=== PATIENT | female | born 1995 | race Caucasian/White ===

== ENCOUNTER 2021-05-09 14:01 | Emergency (ER) | payer BC, MEDICAID ==
[~2021-05-09] VITALS: Ht 175.3 cm; Wt 125.0 kg
[~2021-05-09 14:01] MED LIST: IBUP-1985 PO
[2021-05-09] MEDS ORDERED: ALBUTEROL INHALER 1 PUFF/90 MCG INHALER IH STA (16:27)
[2021-05-09] MEDS ORDERED: ALBU8HFA PO (16:29)
[2021-05-09] MEDS ORDERED: dexamethasone sod phosphate 10mg/ml inj IV STA (16:29)
[2021-05-09] MEDS ORDERED: albuterol 2.5 MG/3 ML nebule NEB ONE (18:55)
[2021-05-09 19:09] VITALS: BP 156/109
== END 2021-05-09 19:12 | disposition home or self-care (01) ==
LOC: ER 14:02
DX: J45.909 Unspecified asthma, uncomplicated (principal); F12.90 Cannabis use, unspecified, uncomplicated; Z88.1 Allergy status to other antibiotic agents; Z79.899 Other long term (current) drug therapy
CPT/HCPCS: 71045; 93005; 96374; 99283; J1100; 94760

== ENCOUNTER 2021-08-13 04:45 | Emergency (ER) | payer BC, SELFPAY ==
[~2021-08-13] VITALS: Ht 175.3 cm; Wt 125.0 kg
[2021-08-13 05:12] VITALS: BP 131/92
--- NOTE | 2021-08-13 07:15 | NUR ---
Pt speaks in full sentences. Given a cup of coffee.
[2021-08-13] MEDS ORDERED: ALBU6.7H9 INH ×2 (07:50)
[2021-08-13] MEDS ORDERED: predniSONE 20 mg tablet PO ONE (07:50)
[2021-08-13] MEDS ORDERED: PRED20TA PO ×2 (07:50)
--- NOTE | 2021-08-13 08:27 | NUR ---
Pt given and understands d/c instructions. Ambulatory with a steady gait.
[2021-08-13] MEDS ORDERED: ALBU18HF2 INH (15:36)
== END 2021-08-13 08:29 | disposition home or self-care (01) ==
LOC: ER 04:45
DX: J06.9 Acute upper respiratory infection, unspecified (principal); Z20.822 Contact with and (suspected) exposure to COVID-19; B34.9 Viral infection, unspecified; J45.901 Unspecified asthma with (acute) exacerbation; J02.9 Acute pharyngitis, unspecified; R11.2 Nausea with vomiting, unspecified; R05.9 Cough, unspecified; R06.02 Shortness of breath; R09.89 Other specified symptoms and signs involving the circulatory and respiratory systems; F12.90 Cannabis use, unspecified, uncomplicated; Z88.1 Allergy status to other antibiotic agents; Z79.899 Other long term (current) drug therapy
CPT/HCPCS: 87635; 99283; C9803; J7512

== ENCOUNTER 2021-08-13 09:22 | Observation (INO) | payer BC ==
[~2021-08-13] VITALS: Ht 175.3 cm; Wt 125.0 kg
[~2021-08-13 09:22] MED LIST changes: +ALBU6.7H9 INH; +PRED20TA PO
[2021-08-13] MEDS ORDERED: albuterol 2.5 MG/3 ML nebule NEB ONE (09:30)
[2021-08-13] MEDS ORDERED: methylPREDNISolone sod succ 125mg/2ml vial IV ONE (09:30)
[2021-08-13] MEDS ORDERED: magnesium 2GM in 50ml NS 50 ML IV ONE (10:05)
[2021-08-13] MEDS: albuterol 2.5 MG/3 ML nebule CONTNEB PRN ×2 (10:19→12:47)
--- NOTE | 2021-08-13 14:42 | NUR ---
GAIT TEST COMPLETE. PT COUGHING. 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 O2 SATS 90-91% WHILE AMBULATING.
[2021-08-13] MEDS ORDERED: normal saline 1000ML IV soln IVB ONE (14:50)
[2021-08-13] MEDS ORDERED: potassium Cl 20 mEq SR tablet PO PRN ×2 (15:20)
[2021-08-13] MEDS ORDERED: magnesium Cl slow-release 64mg tablet PO PRN (15:20)
[2021-08-13] MEDS ORDERED: albuterol 2.5 MG/3 ML nebule NEB PRN ×2 (15:20)
[2021-08-13] MEDS ORDERED: potassium CL 10mEq/100ml bag 100 ML IV PRN (15:20)
[2021-08-13] MEDS ORDERED: normal saline 1000ml 1,000 ML IV SCH (15:20)
[2021-08-13] MEDS ORDERED: magnesium 4gm in 100ml NS 100 ML IV PRN (15:20)
[2021-08-13] MEDS ORDERED: magnesium 2GM in 50ml NS 50 ML IV PRN (15:20)
[2021-08-13] MEDS ORDERED: ondansetron/PF 4mg/2ml inj IV PRN (15:20)
[2021-08-13] MEDS ORDERED: ALBU18HF2 INH (15:36)
[2021-08-13] MEDS: ipratropium/albuterol 3ml nebule NEB SCH ×3 (16:19→23:08)
[2021-08-13 17:11] LABS: MAGNESIUM 2.2 MG/DL (1.5-2.4)
[2021-08-13] MEDS: K and/or MAG REPLACEMENT MC SCH (19:03)
[2021-08-13] MEDS: methylPREDNISolone sod succ 125mg/2ml vial IV SCH (19:31)
[2021-08-13] MEDS: acetaminophen 325mg tablet PO PRN (19:31)
[2021-08-13] MEDS: docusate sod 100mg capsule PO SCH (19:31)
[2021-08-14] MEDS: ipratropium/albuterol 3ml nebule NEB SCH ×3 (02:36→10:36)
[2021-08-14 05:51] LABS: BASOPHILS % (AUTO) 0.1 % (0-1); EOSINOPHILS % (AUTO) 0 % (0-6); HEMATOCRIT 40.9 % (35.0-45.0); HEMOGLOBIN 13.9 g/dl (12.0-16.0); MEAN CORPUSCULAR HEMOGLOBIN 29.8 PG (27.0-31.0); MEAN CORPUSCULAR VOLUME 87.5 FL (78-98); MEAN PLATELET VOLUME 8.4 FL (7.4-10.4); MONOCYTES # (AUTO) 0.6 X10'3 (0-0.9); MONOCYTES % (AUTO) 5.2 % (2-12); NEUTROPHILS # (AUTO) 9.1 X10'3 (1.8-7.7); NEUTROPHILS % (AUTO) 85.7 % (42-75); PLATELET COUNT 250 X10'3 (140-440); RED BLOOD COUNT 4.67 X10'6 (4.20-5.60); RED CELL DISTRIBUTION WIDTH 14.4 % (11.5-14.5); WHITE BLOOD COUNT 10.6 X10'3 (4.5-11.0)
[2021-08-14 06:00] VITALS: BP 132/93
[2021-08-14 06:14] LABS: ALBUMIN 3.4 G/DL (3.4-5.0); ANION GAP 13 (8-16); BLOOD UREA NITROGEN 8 MG/DL (7-18); BUN/CREATININE RATIO 11.8 (6.6-38.0); CHLORIDE 107 MMOL/L (99-107); CREATININE 0.68 MG/DL (0.40-0.90); GLUCOSE 113 MG/DL (70-104); MAGNESIUM 2.1 MG/DL (1.5-2.4); POTASSIUM 4.7 MMOL/L (3.5-5.1); SODIUM 141 MMOL/L (135-145); TOTAL CARBON DIOXIDE 21.3 MMOL/L (24-32); eGFR > 90 ML/MIN
--- NOTE | 2021-08-14 06:36 | NUR ---
report given to ANJALI christensen. all questions answered.
--- NOTE | 2021-08-14 06:47 | NUR ---
Patient in room PCU 3012. I have received report from Olivia ALBA and had the opportunity to ask questions and assume patient care.
[2021-08-14] MEDS: K and/or MAG REPLACEMENT MC SCH (07:06)
[2021-08-14] MEDS: docusate sod 100mg capsule PO SCH (07:39)
[2021-08-14] MEDS: methylPREDNISolone sod succ 125mg/2ml vial IV SCH (07:39)
--- NOTE | 2021-08-14 07:49 | NUR ---
morning svn refused. pt. c/o sore throat. perhaps Atrovent can be discontinued?
[2021-08-14] MEDS: acetaminophen 325mg tablet PO PRN (08:46)
[2021-08-14 11:00] VITALS: BP 141/92
--- NOTE | 2021-08-14 11:00 | NUR ---
Patient discharge home alert and orient, discharge instruction discussed.
== END 2021-08-14 11:37 | disposition home or self-care (01) ==
LOC: ER 09:23 → ED HOLD 15:22 → PCU 3S 22:05
PROVIDERS: ADMIT Internal Medicine; ATTEND Internal Medicine
DX: J45.901 Unspecified asthma with (acute) exacerbation (principal); F12.90 Cannabis use, unspecified, uncomplicated; E66.01 Morbid (severe) obesity due to excess calories; Z68.41 Body mass index [BMI] 40.0-44.9, adult; Z79.899 Other long term (current) drug therapy; Z88.1 Allergy status to other antibiotic agents; Z90.49 Acquired absence of other specified parts of digestive tract
CPT/HCPCS: 36415; 71045; 80048; 83735; 84132; 85025; 87081; 87502; 87503; 94640; 94760; 96361; 96374; 96375; 96376; 99285; G0378; J2405; J2930; J3475; J7030; A7015